=== PATIENT | female | born 1995 | race Caucasian/White ===

== ENCOUNTER → 2017-08-25 | Outpatient (CLI) | payer OTHER ==
[~2017-08-25] MED LIST: AUGMENTIN 875875 MG PO; IBUPROFEN 800800 M1 PO; VENTOLIN HFA 1818 GM INH; ZYRTEC10 MG PO
== END ==
LOC: M.ULTRA 14:49
DX: N92.6 Irregular menstruation, unspecified (principal); E28.2 Polycystic ovarian syndrome